=== PATIENT | male | born 1995 | race Hispanic/Latino ===

== ENCOUNTER 2017-11-30 16:46 | Emergency (ER) | payer MEDICAID, OTHER ==
--- NOTE | 2017-11-30 17:28 | RAD REPORT ---
EXAM DESCRIPTION: RAD - Knee Right 3 View - 11/30/2017 5:23 pm CLINICAL HISTORY: Right knee pain COMPARISON: None. FINDINGS: No fracture, dislocation or joint effusion is seen. Mild soft tissue swelling anterior to the patellar tendon is seen.
[2017-11-30] MEDS ORDERED: HYDROCOD 2.5mg-ACETAMIN 108mg/5mL Soln ONE (17:51)
--- NOTE | 2017-11-30 18:12 | ER ---
Nurse's Notes [facility] Name: Rufino Breen Age: 22 yrs Sex: Male : 1995 Arrival Date: 11/30/2017 Time: 16:50 Bed 15 Private MD: Unknown, Unknown Diagnosis: Other internal derangements of right knee;Contusion of right knee Presentation: 11/30 16:53 Presenting complaint: Mother states: Right knee pain after "horsing around with little aj brother." Patient was unable to walk after injury. Patient's broth reports he was sitting on patient's leg when he felt a pop. Transition of care: patient was not received from another setting of care. Onset of symptoms was November 30, 2017. Care prior to arrival: None. 16:53 Method Of Arrival: Wheelchair 16:53 Acuity: KIARA 4 aj 17:00 Risk Assessment: Do you want to hurt yourself or someone else? Patient reports no jl7 desire to harm self or others. Initial Sepsis Screen: Does the patient meet any 2 criteria? No. Patient's initial sepsis screen is negative. Does the patient have a suspected source of infection? No. Patient's initial sepsis screen is negative. Triage Assessment: 16:57 General: Appears in no apparent distress. comfortable, Behavior is anxious. Pain: aj Complains of pain in right knee. Neuro: Level of Consciousness is awake, Oriented to WNL for patient. Respiratory: Airway is patent Respiratory effort is even, unlabored, Respiratory pattern is regular, symmetrical. Derm: Skin is intact, is healthy with good turgor, Skin is pink, warm \\T\\ dry. normal. Musculoskeletal: Reports pain in right knee. Historical: - Allergies: 16:57 No Known Allergies; aj - Home Meds: 16:57 None [Active]; aj - PMHx: 16:57 "Moderate MR"; Congenital Subglottic Stenosis; Hypoplastic Corpus Callosum; Dilated aj Asterna Magma; Ambyopia; - PSHx: 16:57 Eye; Foot; aj - Immunization history:: Adult Immunizations up to date. - Social history:: Smoking status: Patient/guardian denies using tobacco. - Ebola Screening: : No symptoms or risks identified at this time. Screenin:00 Abuse screen: Denies threats or abuse. Denies injuries from another. Nutritional jl7 screening: No deficits noted. Tuberculosis screening: No symptoms or risk factors identified. Fall Risk No IV (0 pts). Ambulatory Aid- None/Bed Rest/Nurse Assist (0 pts). Gait- Impaired (20 pts.). Mental Status- Overestimates/Forgets Limitations (15 pts.). Total Hilliard Fall Scale indicates Low Risk Score (25-44 pts). Fall prevention measures have been instituted. Side Rails Up X 2 Placed close to Nursing Station Frequent Obs/Assesments occuring Family Present and informed to notify staff if they need to leave bedside As available Patient and Family Educated on Fall Prevention Program and strategies. Assessment: 17:00 General: Appears in no apparent distress. uncomfortable, Behavior is cooperative. Pain: jl7 Complains of pain in right knee Unable to use pain scale. Does not appear to understand pain scale. Neuro: Level of Consciousness is awake, alert, obeys commands. Cardiovascular: Patient's skin is warm and dry. Respiratory: Airway is patent Respiratory effort is even, unlabored, Respiratory pattern is regular, symmetrical. Musculoskeletal: Range of motion: limited in right knee. 18:00 Reassessment: Knee immobilizer placed on right leg. jl7 Vital Signs: 16:57 Resp 19; Temp 98.4; Weight 49.9 kg; Height 5 ft. 0 in. (152.40 cm); aj 16:57 Body Mass Index 21.48 (49.90 kg, 152.40 cm) aj 16:57 Patient was uncooperative with vitals. Became combative with attempt to measure pulse aj ox and pulse ED Course: 16:50 Patient arrived in ED. sb2 16:50 Unknown, Unknown is Private Physician. sb2 16:54 Triage completed. aj 16:57 Arm band placed on left wrist. Patient placed in an exam room. aj 16:59 Mar[facility] Chung [facility]-C [facility]. snw 16:59 Andrew Castillo MD is Attending Physician. snw 17:00 Patient has correct armband on for positive identification. Bed in low position. Call jl7 light in reach. Side rails up X 1. Adult w/ patient. 17:19 X-ray completed. Portable x-ray completed in exam room. Patient tolerated procedure bb2 well. 17:20 Knee Right 3 View XRAY In Process Unspecified. EDMS 17:25 Jono Salazar, RN is Primary Nurse. jl7 18:05 No provider procedures requiring assistance completed. Patient did not have IV access jl7 during this emergency room visit. 18:08 Steve Samaniego MD is Referral Physician. snw Administered Medications: 17:55 Drug: Lortab Liquid 10 ml Route: PO; jl7 18:10 Follow up: Response: No adverse reaction jl7 Outcome: 18:11 Discharge ordered by . snw 18:32 Discharged to home via wheelchair, with family. jl7 18:32 Condition: stable 18:32 Discharge instructions given to patient, family, Instructed on discharge instructions, follow up and referral plans. Demonstrated understanding of instructions, follow-up care. 18:32 Patient left the ED. jl7 Signatures: Dispatcher [employer] EDMarisel Dupont, RN RN Marlen Hanson, WHOLESALE REPRESENTATIVE-C WHOLESALE REPRESENTATIVE-Csnw Jono Salazar RN RN jl7 Aniyah Valenzuela bb2 Lilia Carl sb2
--- NOTE | 2017-11-30 18:12 | EDPHYS ---
Physician Documentation [facility] Name: Rufino Breen Age: 22 yrs Sex: Male : 1995 Arrival Date: 11/30/2017 Time: 16:50 Bed 15 Private MD: Unknown, Unknown ED Physician Andrew Castillo HPI: 12/01 01:59 This 22 yrs old Male presents to ER via Wheelchair with complaints of Knee snw Pain. 01:59 Onset: The symptoms/episode began/occurred suddenly. The patient has not experienced snw similar symptoms in the past. It is unknown whether or not the patient has recently seen a physician. playing with Brother and right knee popped, pt then refused to stand on leg. Historical: - Allergies: 11/30 16:57 No Known Allergies; aj - Home Meds: 16:57 None [Active]; aj - PMHx: 16:57 "Moderate MR"; Congenital Subglottic Stenosis; Hypoplastic Corpus Callosum; Dilated aj Asterna Magma; Ambyopia; - PSHx: 16:57 Eye; Foot; aj - Immunization history:: Adult Immunizations up to date. - Social history:: Smoking status: Patient/guardian denies using tobacco. - Ebola Screening: : No symptoms or risks identified at this time. ROS: 12/01 01:59 Constitutional: Negative for fever, chills, and weight loss, Eyes: Negative for injury, snw pain, redness, and discharge, ENT: Negative for injury, pain, and discharge, Neck: Negative for injury, pain, and swelling, Cardiovascular: Negative for chest pain, palpitations, and edema, Respiratory: Negative for shortness of breath, cough, wheezing, and pleuritic chest pain, Abdomen/GI: Negative for abdominal pain, nausea, vomiting, diarrhea, and constipation, Back: Negative for injury and pain, : Negative for injury, bleeding, discharge, and swelling, Skin: Negative for injury, rash, and discoloration, Neuro: Negative for headache, weakness, numbness, tingling, and seizure. MS/extremity: Positive for pain, swelling, of the right knee. Exam: 01:50 Constitutional: This is a well developed, well nourished patient who is awake, alert, snw and in no acute distress. Head/Face: Normocephalic, atraumatic. Eyes: Pupils equal round and reactive to light, extra-ocular motions intact. Lids and lashes normal. Conjunctiva and sclera are non-icteric and not injected. Cornea within normal limits. Periorbital areas with no swelling, redness, or edema. ENT: Nares patent. No nasal discharge, no septal abnormalities noted. Tympanic membranes are normal and external auditory canals are clear. Oropharynx with no redness, swelling, or masses, exudates, or evidence of obstruction, uvula midline. Mucous membranes moist. Neck: Trachea midline, no thyromegaly or masses palpated, and no cervical lymphadenopathy. Supple, full range of motion without nuchal rigidity, or vertebral point tenderness. No Meningismus. Chest/axilla: Normal chest wall appearance and motion. Nontender with no deformity. No lesions are appreciated. Cardiovascular: Regular rate and rhythm with a normal S1 and S2. No gallops, murmurs, or rubs. Normal PMI, no JVD. No pulse deficits. Respiratory: Lungs have equal breath sounds bilaterally, clear to auscultation and percussion. No rales, rhonchi or wheezes noted. No increased work of breathing, no retractions or nasal flaring. Abdomen/GI: Soft, non-tender, with normal bowel sounds. No distension or tympany. No guarding or rebound. No evidence of tenderness throughout. Back: No spinal tenderness. No costovertebral tenderness. Full range of motion. Skin: Warm, dry with normal turgor. Normal color with no rashes, no lesions, and no evidence of cellulitis. Neuro: Awake and alert, GCS 15, oriented to person, place, time, and situation. Cranial nerves II-XII grossly intact. Motor strength 5/5 in all extremities. Sensory grossly intact. Cerebellar exam normal for pt per Parent report. Declines ambulation Psych: Awake, alert, with orientation to person, place and time. Behavior, mood, and affect are within normal limits. 01:50 Musculoskeletal/extremity: Extremities: the patient is contracted, diffusely, generally prefers to crawl on knees, right knee edematous, tender to patellar region, ROM: range of motion unchanged from pt's norm but refuses to stand on right leg, Circulation is intact in all extremities. Sensation intact. Vital Signs: 11/30 16:57 Resp 19; Temp 98.4; Weight 49.9 kg; Height 5 ft. 0 in. (152.40 cm); aj 16:57 Body Mass Index 21.48 (49.90 kg, 152.40 cm) aj 16:57 Patient was uncooperative with vitals. Became combative with attempt to measure pulse aj ox and pulse MDM: 16:59 Patient medically screened. snw 12/01 01:58 Data reviewed: vital signs, nurses notes. Counseling: I had a detailed discussion with snw the patient and/or guardian regarding: the historical points, exam findings, and any diagnostic results supporting the discharge/admit diagnosis, radiology results, the need for outpatient follow up. Special discussion: Based on the history and exam findings, there is no indication for further emergent testing or inpatient evaluation. I discussed with the patient/guardian the need to see the orthopedic surgeon for further evaluation of the symptoms. I discussed with the patient/guardian the need to see the primary care provider for further evaluation of the symptoms. 11/30 17:00 Order name: Knee Right 3 View XRAY; Complete Time: 17:40 snw 11/30 17:45 Order name: Knee Immobilizer; Complete Time: 18:04 snw Administered Medications: 11/30 17:55 Drug: Lortab Liquid 10 ml Route: PO; jl7 18:10 Follow up: Response: No adverse reaction jl7 Disposition: 11/30/17 18:11 Discharged to Home. Impression: Other internal derangements of right knee, Contusion of right knee. - Condition is Stable. - Discharge Instructions: Elastic Bandage and RICE, Contusion, Ibuprofen Dosage Chart, Pediatric, Acetaminophen Dosage Chart, Pediatric, Knee Bracing, Knee Sprain. - Medication Reconciliation Form, Thank You Letter, Antibiotic Education, Prescription Opioid Use form. - Follow up: Private Physician; When: 1 - 2 days; Reason: Recheck today's complaints, Continuance of care, Re-evaluation by your physician. Follow up: Steve Samaniego MD; When: 1 week; Reason: Recheck today's complaints, Continuance of care. Addendum: 12/06/2017 19:21 Co-signature as Attending Physician, Andrew Castillo MD. r n Signatures: Dispatcher [employer] Marisel Bedolla RN RN Marlen Hanson, INSULATION NOZZLEMAN-C INSULATION NOZZLEMAN-Csnw Andrew Castillo MD MD rn Jono Salazar RN RN jl7 Corrections: (The following items were deleted from the chart) 11/30 18:32 18:11 11/30/2017 18:11 Discharged to Home. Impression: Other internal derangements of jl7 right knee; Contusion of right knee. Condition is Stable. Forms are Medication Reconciliation Form, Thank You Letter, Antibiotic Education, Prescription Opioid Use. Follow up: Private Physician; When: 1 - 2 days; Reason: Recheck today's complaints, Continuance of care, Re-evaluation by your physician. Follow up: Dr. Steve Samaniego; When: 1 week; Reason: Recheck today's complaints, Continuance of care. snw
[2017-11-30 18:36] VITALS: TEMP 98.4
== END 2017-11-30 18:32 | disposition home or self-care (01) ==
LOC: ER 16:46
DX: S80.01XA Contusion of right knee, initial encounter (principal); M23.8X1 Other internal derangements of right knee; X58.XXXA Exposure to other specified factors, initial encounter; Y93.89 Activity, other specified; Y92.9 Unspecified place or not applicable
CPT/HCPCS: 99283